=== PATIENT | female | born 1990 | race African-American/Black ===

== ENCOUNTER 2018-06-27 07:22 | Emergency (ER) | payer OTHER ==
[~2018-06-27] VITALS: Ht 172.7 cm; Wt 63.6 kg
[~2018-06-27 07:22] MED LIST: ADVIL200 M1 OR; AMOXICILLIN500 M1 OR; CEPHALEXIN500 MG OR; NO MEDS; TRIMOX500 MG PO; TYLENOL500 MG OR
[2018-06-27 07:58] LABS: URINE BILIRUBIN - DIPSTICK NEGATIVE (NEGATIVE); URINE BLOOD DIPSTICK NEGATIVE (NEGATIVE); URINE COLOR YELLOW; URINE GLUCOSE - DIPSTICK NEGATIVE (NEGATIVE); URINE KETONE NEGATIVE (NEGATIVE); URINE LEUK ESTERASE NEGATIVE (NEGATIVE); URINE NITRITE - DIPSTICK NEGATIVE (Negative); URINE PH 7.5 (4.5-8.0); URINE PROTEIN - DIPSTICK NEGATIVE (NEG-TRACE); URINE UROBILINOGEN - DIPSTICK 0.2 E.U./dL (0.2)
[2018-06-27 08:00] LABS: URINE CLARITY CLEAR
[2018-06-27 09:42] VITALS: BP 117/60
== END 2018-06-27 09:50 | disposition home or self-care (01) ==
LOC: ED 07:22
PROVIDERS: Family Medicine
DX: O23.599 Infection of other part of genital tract in pregnancy, unspecified trimester (principal); Z3A.10 10 weeks gestation of pregnancy; R10.30 Lower abdominal pain, unspecified; R30.0 Dysuria

== ENCOUNTER 2018-06-28 09:09 | Emergency (ER) | payer OTHER | END 2018-06-28 09:19 | disposition left against medical advice (07) | DRG 951 | LOC: ED 09:09 → LWOBS 09:19 | DX: Z91.19 Patient's noncompliance with other medical treatment and regimen (principal) ==

== ENCOUNTER → 2018-11-11 | Outpatient (REF) | payer OTHER | END | disposition home or self-care (01) | LOC: ULTRASND 13:51 | PROVIDERS: ATTEND Obstetrics & Gynecology | DX: O34.599 Maternal care for other abnormalities of gravid uterus, unspecified trimester (principal) ==

== ENCOUNTER 2019-07-13 11:03 | Emergency (ER) | payer OTHER ==
[~2019-07-13] VITALS: Ht 172.7 cm; Wt 75.0 kg
[2019-07-13 13:01] VITALS: BP 128/77
== END 2019-07-13 12:56 | disposition home or self-care (01) ==
LOC: ED 11:03
DX: J11.1 Influenza due to unidentified influenza virus with other respiratory manifestations (principal)

== ENCOUNTER 2024-07-31 07:25 | Emergency (ER) | payer BC, MEDICAID ==
[2024-07-31] VITALS (14 sets, daily range): BP systolic 108–170; BP diastolic 75–112
[~2024-07-31] VITALS: Ht 172.7 cm; Wt 68.0 kg
[2024-07-31] MEDS ORDERED: ONDANSETRON HCl 4 MG/2 ML SDV IV ONE (07:30)
[2024-07-31] MEDS ORDERED: SODIUM CHLORIDE 0.9% 1,000 ML IV ONE ×2 (07:30→07:50)
[2024-07-31] MEDS ORDERED: ISOVUE-300 (Iopamidol) 100 ML SDV IV ONE (07:50)
[2024-07-31 07:58] LABS: BASO% 0.1 % (0-3); EOS% 0.2 % (0-8); IMMATURE GRANULOCYTES 0.1 % (0.0-5.0); LYMPH% 18.6 % (15-41); MEAN CELL VOLUME 90.5 fL CALC (80.0-100.0); MEAN CORPUSCULAR HGB 28.8 pG CALC (26.0-32.0); MEAN CORPUSCULAR HGB CONC 31.9 g/dL CAL (32.0-36.0); MONO% 8.5 % (2-13); NEUT# 6.05 thou/uL (2.00-7.15); NEUT% 72.5 % (42-76); RED BLOOD COUNT 4.75 mill/uL (4.20-5.60)
[2024-07-31 08:11] LABS: HEMOGLOBIN 13.7 g/dl (12.0-16.0)
[2024-07-31 08:14] LABS: ALBUMIN 5.2 g/dL (3.2-5.0); BILIRUBIN, TOTAL 0.7 mg/dL (0.02-1.3); CREATININE 0.8 mg/dL (0.5-1.0); POTASSIUM 3.5 mmol/l (3.5-5.1); TOTAL PROTEIN 9.5 g/dL (6.3-8.2)
[2024-07-31] MEDS ORDERED: PROMETHAZINE HCL 25 MG/ML AMP IM ONE (08:40)
[2024-07-31 10:53] LABS: URINE BILIRUBIN - DIPSTICK Negative (NEGATIVE); URINE BLOOD DIPSTICK Negative (NEGATIVE); URINE COLOR Yellow; URINE GLUCOSE - DIPSTICK Negative (NEGATIVE); URINE KETONE 40 mg/dL (NEGATIVE); URINE LEUK ESTERASE Negative (NEGATIVE); URINE NITRITE - DIPSTICK Negative (Negative); URINE PH 6.5 (4.5-8.0); URINE PROTEIN - DIPSTICK Negative (NEG-TRACE); URINE UROBILINOGEN - DIPSTICK 0.2 E.U./dL (0.2)
[2024-07-31] MEDS ORDERED: HALOPERIDOL LACTATE 5 MG/ML SDV IV ONE (11:40)
[2024-07-31] MEDS ORDERED: PROMETHAZINE HY25 M1 PO (13:12)
== END 2024-07-31 13:24 | disposition home or self-care (01) | DRG 392 ==
LOC: ED 07:25
PROVIDERS: Family Medicine
DX: R11.2 Nausea with vomiting, unspecified (principal)
CPT/HCPCS: J1630; J2405; Q9967